=== PATIENT | male | born 1980 | race Caucasian/White ===

== ENCOUNTER 2017-12-10 10:26 | Emergency (ER) | payer OTHER ==
[~2017-12-10] VITALS: Ht 182.9 cm; Wt 108.9 kg
[2017-12-10] MEDS ORDERED: LEVSOD125 PO (10:50)
[2017-12-10] MEDS ORDERED: BUPRENORPHINE HC8 MG (10:50)
[2017-12-10] MEDS ORDERED: GABA300 PO (10:50)
[2017-12-10] MEDS ORDERED: ESCI20 PO (10:50)
[2017-12-10] MEDS ORDERED: CLON.2 PO (10:50)
[2017-12-10 11:20] LABS: BASOPHILS ABSOLUTE AUTO 0.03 K/mm3 (0.00-0.23); BASOPHILS PERCENT AUTO 0 % (0-2); EOSINOPHILS ABSOLUTE AUTO 0.09 K/mm3 (0.00-0.68); EOSINOPHILS PERCENT AUTO 1 % (0-6); Hematocrit 38.7 % (37.0-53.0); Hemoglobin 12.9 g/dL (13.5-17.5); IMMATURE GRAN ABSOLUTE AUTO 0.03 K/mm3 (0.00-0.10); IMMATURE GRAN PERCENT AUTO 0 % (0-1); LYMPHOCYTES ABSOLUTE AUTO 1.45 K/mm3 (0.84-5.20); LYMPHOCYTES PERCENT AUTO 15 % (21-46); MONOCYTES ABSOLUTE AUTO 0.59 K/mm3 (0.16-1.47); MONOCYTES PERCENT AUTO 6 % (4-13); Mean Corpuscular HGB 27.5 pg (26.0-34.0); Mean Corpuscular HGB Conc 33.3 g/dL (31.5-36.5); Mean Corpuscular Volume 83 fL (80-100); Mean Platelet Volume 9.3 fL (9.1-12.4); NEUTROPHILS ABSOLUTE AUTO 7.82 K/mm3 (1.96-9.15); NEUTROPHILS PERCENT AUTO 78 % (41-73); Platelet Count 211 K/mm3 (150-400); RDW Coefficient Variation 14.7 % (11.7-14.2); RDW Standard Deviation 44.2 fL (35.1-46.3); Red Blood Cell Count 4.69 M/mm3 (4.30-5.90); White Blood Cell Count 10.01 K/mm3 (4.00-11.30)
[2017-12-10 11:39] LABS: Alanine Aminotransfer (ALT/SGP 49 U/L (12-78); Albumin, Blood 3.2 g/dL (3.4-5.0); Albumin/Globulin Ratio 0.8 (0.8-1.8); Alk Phos 156 U/L (50-136); Anion Gap 7 mmol/L (6-16); Aspartate Aminotrans (AST/SGOT 36 U/L (12-37); Bilirubin, Total 0.7 mg/dL (0.1-1.0); Blood Urea Nitrogen 19 mg/dL (8-24); CO2, Blood 24 mmol/L (21-32); Calcium, Blood 8.1 mg/dL (8.5-10.1); Chloride, Blood 102 mmol/L (98-108); Globulin, Blood 3.8 g/dL (2.2-4.0); Glomerular Filtration Rate >60 (60-); Glucose, Blood 376 mg/dL (70-99); Potassium, Blood 4.1 mmol/L (3.5-5.5); Sodium, Blood 133 mmol/L (136-145)
== END 2017-12-10 14:41 | disposition home or self-care (01) ==
LOC: ER 10:26
PROVIDERS: Emergency Medicine
DX: F11.23 Opioid dependence with withdrawal (principal); R73.09 Other abnormal glucose; I10 Essential (primary) hypertension; E78.00 Pure hypercholesterolemia, unspecified; E03.9 Hypothyroidism, unspecified; Z79.899 Other long term (current) drug therapy
CPT/HCPCS: 80053; 82947; 85025; 96360; 96361; 99283; J1815; J7030

== ENCOUNTER 2017-12-19 13:39 | Emergency (ER) | payer OTHER ==
[~2017-12-19] VITALS: Ht 182.9 cm; Wt 108.9 kg
[~2017-12-19 13:39] MED LIST: BUPRENORPHINE HC8 MG; CLON.2 PO; ESCI20 PO; GABA300 PO; LEVSOD125 PO
[2017-12-19] MEDS ORDERED: Techlite Blood1 EACH UD (14:01)
[2017-12-19] MEDS ORDERED: TEST STRIPS1 EACH TOP (14:01)
[2017-12-19] MEDS ORDERED: Lantus100 UNIT/1 SC (14:01)
[2017-12-19] MEDS ORDERED: Humalog100 UNIT/1 SC (14:01)
[2017-12-19] MEDS ORDERED: CLON.2 PO (14:10)
[2017-12-19] MEDS ORDERED: LEVSOD50 PO (14:10)
== END 2017-12-19 14:11 | disposition home or self-care (01) ==
LOC: ER 13:39
DX: Z76.0 Encounter for issue of repeat prescription (principal); I10 Essential (primary) hypertension; E78.00 Pure hypercholesterolemia, unspecified; E03.9 Hypothyroidism, unspecified; Z79.899 Other long term (current) drug therapy
CPT/HCPCS: 82947; 99283

== ENCOUNTER 2025-06-30 11:01 | Emergency (ER) | payer OTHER ==
[~2025-06-30] VITALS: Ht 182.9 cm; Wt 81.7 kg
[~2025-06-30 11:01] MED LIST changes: +Humalog100 UNIT/1 SC; +LEVSOD50 PO; +Lantus100 UNIT/1 SC; +TEST STRIPS1 EACH TOP; +Techlite Blood1 EACH UD
[2025-06-30 11:59] LABS: BASOPHILS ABSOLUTE AUTO 0.03 K/mm3 (0.00-0.23); BASOPHILS PERCENT AUTO 0 % (0-2); EOSINOPHILS ABSOLUTE AUTO 0.02 K/mm3 (0.00-0.68); EOSINOPHILS PERCENT AUTO 0 % (0-6); Hematocrit 38.7 % (37.0-53.0); Hemoglobin 13.2 g/dL (13.5-17.5); IMMATURE GRAN ABSOLUTE AUTO 0.02 K/mm3 (0.00-0.10); IMMATURE GRAN PERCENT AUTO 0 % (0-1); LYMPHOCYTES ABSOLUTE AUTO 1.33 K/mm3 (0.84-5.20); LYMPHOCYTES PERCENT AUTO 17 % (21-46); MONOCYTES ABSOLUTE AUTO 0.81 K/mm3 (0.16-1.47); MONOCYTES PERCENT AUTO 11 % (4-13); Mean Corpuscular HGB Conc 34.1 g/dL (31.5-36.5); Mean Corpuscular Volume 84 fL (80-100); NEUTROPHILS ABSOLUTE AUTO 5.47 K/mm3 (1.96-9.15); NEUTROPHILS PERCENT AUTO 71 % (41-73); NRBC ABSOLUTE 0.00 K/mm3 (0.00-0.02); NRBC Auto 0.0 /100 WBC (0.0-0.2); Platelet Count 247 K/mm3 (150-400); RDW Coefficient Variation 13.2 % (11.7-14.2); RDW Standard Deviation 40.5 fL (35.1-46.3)
[2025-06-30 12:22] LABS: Alanine Aminotransfer (ALT/SGP 197.0 U/L (12-78); Albumin, Blood 4.0 g/dL (3.4-5.0); Albumin/Globulin Ratio 1.3 (0.8-1.8); Anion Gap 10.0 mmol/L (3-11); Aspartate Aminotrans (AST/SGOT 73.0 U/L (12-37); Bilirubin, Total 0.5 mg/dL (0.1-1.0); Blood Urea Nitrogen 13.0 mg/dL (8-24); CO2, Blood 24.0 mmol/L (21-32); Calcium, Blood 9.3 mg/dL (8.5-10.1); Chloride, Blood 105.0 mmol/L (98-108); Creatinine, Blood 1.39 mg/dL (0.60-1.20); Globulin, Blood 3.0 g/dL (2.2-4.0); Glucose, Blood 128.0 mg/dL (70-99); Potassium, Blood 4.8 mmol/L (3.5-5.5); Sodium, Blood 134.0 mmol/L (136-145); Total Protein, Blood 7.0 g/dL (6.4-8.2)
[2025-06-30] MEDS ORDERED: NS 1,000 ML IV SCH (12:35)
[2025-06-30] MEDS ORDERED: HUMULIN R100 UNIT/1 SC (13:37)
[2025-06-30] MEDS ORDERED: BASAGLAR K100 UNIT/3 SC (14:06)
[2025-06-30] MEDS ORDERED: CATAPRES0.1 MG PO (14:06)
[2025-06-30] MEDS ORDERED: NOVOLIN R100 UNIT/2 SC (14:06)
[2025-06-30] MEDS ORDERED: LEVOTHYROXINE200 MCG PO (14:06)
[2025-06-30 14:07] VITALS: BP 142/82
[2025-07-01] MEDS ORDERED: BASAGLAR K100 UNIT/3 SC (08:24)
[2025-07-01] MEDS ORDERED: CATAPRES0.1 MG PO (08:24)
[2025-07-01] MEDS ORDERED: HUMULIN R100 UNIT/1 SC (08:24)
[2025-07-01] MEDS ORDERED: LEVOTHYROXINE200 MCG PO (08:24)
== END 2025-06-30 14:10 | disposition home or self-care (01) ==
LOC: ER 11:01
PROVIDERS: Student in an Organized Health Care Education/Training Program
DX: N17.9 Acute kidney failure, unspecified (principal); E10.9 Type 1 diabetes mellitus without complications; E87.1 Hypo-osmolality and hyponatremia; I10 Essential (primary) hypertension; E86.0 Dehydration; Z76.0 Encounter for issue of repeat prescription; Z79.4 Long term (current) use of insulin; Z79.899 Other long term (current) drug therapy
CPT/HCPCS: 80053; 82947; 85025; 93005; 93010; 96360; 99283-25; J7030

== ENCOUNTER → 2025-08-14 | Outpatient (CLI) | payer OTHER ==
[~2025-08-14] MED LIST changes: +BASAGLAR K100 UNIT/3 SC; +CATAPRES0.1 MG PO; +HUMULIN R100 UNIT/1 SC; +LEVOTHYROXINE200 MCG PO; +NOVOLIN R100 UNIT/2 SC
== END | disposition home or self-care (01) ==
LOC: LAB 08:57 → LAB SHORT 08:57
DX: T63.304A Toxic effect of unspecified spider venom, undetermined, initial encounter (principal)
CPT/HCPCS: 87070; 87075; 87077; 87147; 87186; 87205